=== PATIENT | female | born 1955 | race Caucasian/White ===

== ENCOUNTER → 2024-08-05 | Outpatient (CLI) | payer MEDICARE ==
--- NOTE | 2024-08-05 17:03 | HMCIMG ---
FINGER(S) 2+VWS LT HISTORY: Left thumb pain COMPARISON: None TECHNIQUE: 3 images of left lung were obtained. FINDINGS: There is no acute displaced fracture or dislocation. There is subluxation of the first carpometacarpal joint. Degenerative changes are seen. IMPRESSION: 1. Findings as described above.
== END | disposition home or self-care (01) ==
LOC: RAH 14:24
PROVIDERS: ATTEND Family Medicine
DX: S63.042A Subluxation of carpometacarpal joint of left thumb, initial encounter (principal); M18.12 Unilateral primary osteoarthritis of first carpometacarpal joint, left hand; M79.645 Pain in left finger(s); X58.XXXA Exposure to other specified factors, initial encounter; Y93.89 Activity, other specified; Y92.89 Other specified places as the place of occurrence of the external cause; Y99.8 Other external cause status
CPT/HCPCS: 73140

== ENCOUNTER → 2025-03-13 | Outpatient (CLI) | payer MEDICARE ==
--- NOTE | 2025-03-14 04:32 | HMCIMG ---
EXAM: CR Right Elbow, 3 views. CLINICAL HISTORY: Pain. Fall. COMPARISON: None provided. FINDINGS: No acute fracture or aggressive appearing osseous lesion. Mild osteopenia. Mild osteoarthritis. No radiographic evidence of joint effusion. The soft tissues are unremarkable. IMPRESSION: No acute bony abnormality is evident. /[place]
--- NOTE | 2025-03-14 04:34 | HMCIMG ---
EXAM: CR Pelvis and Right Hip, 3 views. CLINICAL HISTORY: Pain. Fall. COMPARISON: None provided. FINDINGS: No acute fracture or aggressive appearing osseous lesion. Mild osteopenia. 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 The soft tissues are unremarkable. IMPRESSION: No acute bony abnormality is evident. Mild osteopenia. Mild osteoarthritis. /[place]
== END | disposition home or self-care (01) ==
LOC: RAH 14:32
PROVIDERS: ATTEND Family Medicine
DX: M16.0 Bilateral primary osteoarthritis of hip (principal); M19.021 Primary osteoarthritis, right elbow; M46.1 Sacroiliitis, not elsewhere classified; M85.89 Other specified disorders of bone density and structure, multiple sites; M25.551 Pain in right hip; M25.521 Pain in right elbow; Z91.89 Other specified personal risk factors, not elsewhere classified
CPT/HCPCS: 73080; 73502